=== PATIENT | female | born 1955 | race Caucasian/White ===

== ENCOUNTER → 2019-05-03 | Outpatient (CLI) | payer OTHER ==
[~2019-05-03] MED LIST: ALPR1 PO; ASPI81CH PO; FEXPSEER PO; GUAI600T33 PO; LEVSOD50 PO; PRAV20 PO; TEMA30 PO
[2019-05-03 12:50] LABS: BASOPHILS PERCENT AUTO 1 % (0-2); EOSINOPHILS ABSOLUTE AUTO 0.31 K/mm3 (0.00-0.68); EOSINOPHILS PERCENT AUTO 3 % (0-6); Hematocrit 39.5 % (33.0-51.0); Hemoglobin 13.1 g/dL (11.5-16.0); IMMATURE GRAN ABSOLUTE AUTO 0.09 K/mm3 (0.00-0.10); IMMATURE GRAN PERCENT AUTO 1 % (0-1); LYMPHOCYTES ABSOLUTE AUTO 4.01 K/mm3 (0.84-5.20); LYMPHOCYTES PERCENT AUTO 34 % (21-46); MONOCYTES PERCENT AUTO 8 % (4-13); Mean Corpuscular HGB 31.8 pg (26.0-34.0); Mean Corpuscular HGB Conc 33.2 g/dL (31.5-36.5); Mean Corpuscular Volume 96 fL (80-100); Mean Platelet Volume 10.4 fL (9.1-12.4); NEUTROPHILS ABSOLUTE AUTO 6.44 K/mm3 (1.96-9.15); NEUTROPHILS PERCENT AUTO 54 % (41-73); Platelet Count 300 K/mm3 (150-400); RDW Coefficient Variation 13.4 % (11.7-14.2); RDW Standard Deviation 47.4 fL (35.1-46.3); Red Blood Cell Count 4.12 M/mm3 (3.80-5.20); White Blood Cell Count 11.95 K/mm3 (4.00-11.30)
[2019-05-03 13:39] LABS: Alanine Aminotransfer (ALT/SGP 18 U/L (12-78); Albumin, Blood 3.8 g/dL (3.4-5.0); Alk Phos 83 U/L (40-126); Anion Gap 8 mmol/L (6-16); Aspartate Aminotrans (AST/SGOT 17 U/L (12-37); Bilirubin, Total 0.4 mg/dL (0.1-1.0); Blood Urea Nitrogen 16 mg/dL (8-24); Bun/Creatinine Ratio 18.2 (12.0-20.0); CO2, Blood 29 mmol/L (21-32); Calcium, Blood 9.2 mg/dL (8.5-10.1); Chloride, Blood 104 mmol/L (98-108); Creatinine, Blood 0.88 mg/dL (0.40-1.00); Globulin, Blood 3.7 g/dL (2.2-4.0); Glomerular Filtration Rate >60 (60-); Glucose, Blood 112 mg/dL (70-99); Potassium, Blood 4.1 mmol/L (3.5-5.5); Sodium, Blood 141 mmol/L (136-145); Total Protein, Blood 7.5 g/dL (6.4-8.2)
== END ==
LOC: LAB SHORT 12:46 → LAB EV 12:46
PROVIDERS: Emergency Medicine
DX: R06.00 Dyspnea, unspecified (principal)
CPT/HCPCS: 80053; 85025; 87040

== ENCOUNTER → 2019-09-13 | Outpatient (CLI) | payer OTHER | END | disposition home or self-care (01) | LOC: LAB EV 14:30 → LAB SHORT 14:30 | DX: G89.4 Chronic pain syndrome (principal) ==

== ENCOUNTER → 2020-04-23 | Outpatient (CLI) | payer OTHER | LOC: LAB EV 10:05 → LAB SHORT 10:05 | DX: Z51.81 Encounter for therapeutic drug level monitoring (principal); Z79.899 Other long term (current) drug therapy | CPT/HCPCS: G0480 ==

== ENCOUNTER → 2020-07-17 | Outpatient (CLI) | payer OTHER ==
[2020-07-17 13:55] LABS: Stool Occult Bld Immuno 1 Negative (NEGATIVE)
== END | disposition home or self-care (01) ==
LOC: LAB SRC 11:32 → LAB SHORT 11:32
PROVIDERS: Nurse Practitioner Family
DX: K92.1 Melena (principal)
CPT/HCPCS: 82274

== ENCOUNTER 2020-07-31 12:40 | Day surgery (SDC) | payer OTHER ==
[~2020-07-31] VITALS: Ht 149.9 cm; Wt 70.0 kg
--- NOTE | 2020-07-31 13:27 | NUR ---
07/31/20 5087 Breanna Garcia PT. GIVEN 4MG IV ZOFRAN FOR NAUSEA. PT. VERBALIZES GOT NAUSEATED AFTER PREP. PT. ALSO VERBALIZES PREP MADE HER HAVE CHILLS & FEEL COLD. ZOFRAN GIVEN PER DR. TRIPATHI.
== END 2020-07-31 14:44 | disposition home or self-care (01) ==
LOC: ORSCSDS 12:40
PROVIDERS: Surgery
PROC: 0DBM8ZX Excision of Descending Colon, Via Natural or Artificial Opening Endoscopic, Diagnostic (ICD-10-PCS; principal; 2020-07-31 14:00)
DX: K62.5 Hemorrhage of anus and rectum (principal); D12.4 Benign neoplasm of descending colon; F41.9 Anxiety disorder, unspecified; J45.909 Unspecified asthma, uncomplicated; E78.5 Hyperlipidemia, unspecified; Z87.891 Personal history of nicotine dependence; Z79.82 Long term (current) use of aspirin; Z79.899 Other long term (current) drug therapy
CPT/HCPCS: 88305; J2405; J2704; J7120

== ENCOUNTER 2023-11-10 20:05 | Emergency (ER) | payer OTHER ==
[~2023-11-10] VITALS: Ht 149.9 cm; Wt 61.2 kg
[2023-11-10 20:24] VITALS: BP 128/93
== END 2023-11-10 23:00 | disposition home or self-care (01) ==
LOC: ER 20:05
DX: S61.412A Laceration without foreign body of left hand, initial encounter (principal); W26.8XXA Contact with other sharp object(s), not elsewhere classified, initial encounter; Z88.0 Allergy status to penicillin; Z88.5 Allergy status to narcotic agent; Z79.82 Long term (current) use of aspirin; Z79.899 Other long term (current) drug therapy; Z79.890 Hormone replacement therapy; Z87.891 Personal history of nicotine dependence
CPT/HCPCS: 12002; 73130; 99283-25

== ENCOUNTER 2024-01-18 12:32 | Day surgery (SDC) | payer OTHER ==
[~2024-01-18] VITALS: Ht 149.9 cm; Wt 74.5 kg
[~2024-01-18 12:32] MED LIST changes: +Lactated Ringer's 1,000 ML IV ONE; +propofoL 50 ML IV ONE
[2024-01-18] MEDS ORDERED: ATOR40TA (13:38)
[2024-01-18] MEDS ORDERED: ALEN70 (13:39)
[2024-01-18] MEDS ORDERED: Percocet 10-321 EACH (13:40)
[2024-01-18] MEDS ORDERED: MELATONIN5 M1 (13:41)
[2024-01-18] MEDS ORDERED: Lactated Ringer's 1,000 ML IV ONE (14:10)
[2024-01-18 15:36] VITALS: BP 153/72
== END 2024-01-18 15:33 | disposition home or self-care (01) ==
LOC: ORSCSDS 12:32
PROVIDERS: Internal Medicine Gastroenterology
PROC: 0DBN8ZX Excision of Sigmoid Colon, Via Natural or Artificial Opening Endoscopic, Diagnostic (ICD-10-PCS; principal; 2024-01-18 13:45)
PROC: 0DBP8ZX Excision of Rectum, Via Natural or Artificial Opening Endoscopic, Diagnostic (ICD-10-PCS; principal; 2024-01-18 13:45)
PROC: 0DBL8ZX Excision of Transverse Colon, Via Natural or Artificial Opening Endoscopic, Diagnostic (ICD-10-PCS; principal; 2024-01-18 13:45)
DX: R93.3 Abnormal findings on diagnostic imaging of other parts of digestive tract (principal); Z86.010 Personal history of colon polyps; D12.3 Benign neoplasm of transverse colon; D12.5 Benign neoplasm of sigmoid colon; K62.1 Rectal polyp; Z87.891 Personal history of nicotine dependence; E03.9 Hypothyroidism, unspecified; E78.5 Hyperlipidemia, unspecified; J45.909 Unspecified asthma, uncomplicated; F03.90 Unspecified dementia, unspecified severity, without behavioral disturbance, psychotic disturbance, mood disturbance, and anxiety; Z79.899 Other long term (current) drug therapy; Z79.82 Long term (current) use of aspirin
CPT/HCPCS: 88305; J2704; J7120

== ENCOUNTER 2024-06-13 09:00 | Day surgery (SDC) | payer OTHER ==
[~2024-06-13] VITALS: Ht 149.9 cm; Wt 74.6 kg
[~2024-06-13 09:00] MED LIST changes: +ALEN70; +ATOR40TA; +MELATONIN5 M1; +Percocet 10-321 EACH; +Ropivacaine 0.5% HCL/PF 5 MG/ML 30ML Vial ONE; -propofoL 50 ML IV ONE
[2024-06-13] MEDS ORDERED: CefTRIAXone Sodium 2,000 MG in NS 100 ML IV SCH (09:25)
[2024-06-13] MEDS ORDERED: Bupivacaine 0.5% HCl 5 MG/ML 30MLVIAL ONE (09:30)
[2024-06-13] MEDS ORDERED: Dexamethasone Sod Phos 10 MG/ML 1ML VIAL ONE (09:30)
[2024-06-13] MEDS ORDERED: GUAI600T33 (09:32)
[2024-06-13] MEDS ORDERED: MULVITA PO (09:32)
[2024-06-13] MEDS ORDERED: NS 1,000 ML IV ONE (09:46)
[2024-06-13] MEDS ORDERED: Lactated Ringer's 1,000 ML IV ONE ×2 (09:46→11:50)
[2024-06-13] MEDS ORDERED: Midazolam HCl 1MG / ML 2ML Vial ONE (10:15)
--- NOTE | 2024-06-13 10:37 | NUR ---
06/13/[address] IN PREOP ROOM 1020 [id number] VESED [address] RIVER START BLOCK:1033 END: 1036 BIOX 96% RA
[2024-06-13] MEDS ORDERED: Rocuronium Bromide 10 MG/ML 5ML Injection IV ONE ×2 (10:40→11:49)
[2024-06-13] MEDS ORDERED: propofoL 20 ML IV ONE (10:40)
[2024-06-13] MEDS ORDERED: FentaNYL Citrate 50 MCG/ML 2 ML Injection ONE ×2 (10:40→11:48)
[2024-06-13] MEDS ORDERED: Ketorolac Tromethamine 30mg Vial ONE (10:41)
[2024-06-13] MEDS ORDERED: Ondansetron HCl 2 MG / ML 2ML Vial ONE (10:41)
--- NOTE | 2024-06-13 11:27 | NUR ---
06/13/24 1127 Renetta Hooker 1 MG OF EPI ADDED TO FIRST BAG OF LR FOR IRREGATION 2X SAFETY STRAPS 1X GEL PAD UNDER EACH SAFETY STRAP 1X GEL PAD UNDER BOTTOM ANKLE 1X PILLOW BETWEEN KNEES
[2024-06-13] MEDS ORDERED: EPINEPhrine HCl 1 MG/ML 1ML Amp XX ONE (11:32)
[2024-06-13] MEDS ORDERED: Sugammadex Sodium 200 MG/2ML SDV (100 MG/ML) ONE (12:17)
--- NOTE | 2024-06-13 12:51 | NUR ---
06/13/24 1251 VERO VELASQUEZ BP CUFF IS ON LOWER RIGHT LEG. PT REMINDED TO HOLD HER LEG STILL. PT REQUESTED DENTURES. SHE PUT UPPER DENTURES IN WHILE IN PACU. LOWER DENTURES ARE GLUED IN STATES PATIENT
[2024-06-13] MEDS ORDERED: HYDROmorphone HCl 2 MG Tab ONE (13:17)
[2024-06-13 13:25] VITALS: BP 159/76
== END 2024-06-13 13:48 | disposition home or self-care (01) ==
LOC: ORSCSDS 09:00
DX: M75.111 Incomplete rotator cuff tear or rupture of right shoulder, not specified as traumatic (principal); M75.41 Impingement syndrome of right shoulder; M75.31 Calcific tendinitis of right shoulder; I10 Essential (primary) hypertension; J44.89 Other specified chronic obstructive pulmonary disease; Z79.899 Other long term (current) drug therapy; Z87.891 Personal history of nicotine dependence; E03.9 Hypothyroidism, unspecified; F41.9 Anxiety disorder, unspecified; Z85.118 Personal history of other malignant neoplasm of bronchus and lung; Z79.82 Long term (current) use of aspirin
CPT/HCPCS: A9270; C1713; J0171; J0696; J1100; J1885; J2250; J2405; J2704; J2795; J3010; J7120